=== PATIENT | male | born 1935 | race Caucasian/White ===

== ENCOUNTER 2017-09-20 15:39 | Inpatient (IN) | payer MEDICARE, OTHER ==
[~2017-09-20] VITALS: Ht 180.3 cm; Wt 89.4 kg
[~2017-09-20 15:39] MED LIST: ALLOPURINOL 10100 M1 PO; ALTACE10 MG PO; ASA81BEC PO; BENTYL20 MG PO; CARDURA4 MG PO; COREG6.25 MG PO; COUMADIN 10MG T10 M1 PO; COUMADIN 1MG TAB1 M1 PO; COUMADIN 5 MG TA5 M1 PO; FISH OIL 1,001000 M2 PO; FLONASE 0.05%50 MCG NASAL; KEFLEX500 M1 PO; KEFLEX500 MG PO; LASIX 40 MG TAB40 M2 PO; LIVALO2 MG PO; MIRALAX17 GM PO; PERCOCET PO; PREVACID30 MG PO; SINGULAIR 10 MG10 M1 PO; SINGULAIR 10 MG10 MG PO; TRAMADOL HCL50 MG PO; TYLENOL325 MG PO; VENTOLIN HFA 1818 GM INH
[2017-09-20 15:44] VITALS: BP 132/74
[2017-09-20] MEDS ORDERED: [UNRECOGNIZED DRUG - OTHER] PO (16:37)
[2017-09-20] MEDS ORDERED: SAVAYSA30 MG PO (16:38)
[2017-09-20] MEDS ORDERED: VITAMIN D2000 UNIT PO (16:39)
[2017-09-20] MEDS ORDERED: TYLENOL EXTRA500 MG PO (16:39)
[2017-09-20] MEDS ORDERED: ZANAFLEX2 MG PO (16:40)
[2017-09-20 16:46] LABS: ABSOLUTE EOSINOPHILS 0.2 thou/uL (0.0-0.7); ABSOLUTE LYMPHOCYTES 1.2 thou/uL (0.8-5.3); ABSOLUTE NEUTROPHILS 5.7 thou/uL (1.6-8.1); BASOPHILS 0.4 %; EOSINOPHILS 2.3 %; HEMATOCRIT 38.3 % (42.0-52.0); HEMOGLOBIN 12.5 gm/dL (14.0-18.0); MCH 31.3 pg (26.0-34.0); MCHC 32.5 g/dL (28.0-37.0); MCV 96.1 fL (80.0-100.0); MPV 9.7 fl. (7.2-11.1); NUCLEATED RBCS 0 /100WBC; PLATELET COUNT* 85 thou/uL (150-400); POLYS 70.3 %; RBC 3.99 mil/uL (4.50-6.00); RDW-CV 15.2 % (10.5-14.5); WBC 8.1 thou/uL (4.0-11.0)
[2017-09-20 17:01] LABS: ANION GAP 6 mmol/L (7-16); BUN 34 mg/dL (7-18); CALCIUM 9.4 mg/dL (8.5-10.1); CHLORIDE 111 mmol/L (98-107); CO2 28 mmol/L (21-32); CREATININE 1.2 mg/dL (0.6-1.3); GLUCOSE 99 mg/dL (70-99); POTASSIUM 4.8 mmol/L (3.5-5.1); SODIUM 145 mmol/L (136-145)
[2017-09-20 17:11] LABS: ALBUMIN 3.6 g/dL (3.4-5.0); ALKALINE PHOSPHATASE 46 U/L (46-116); NT-PRO BRAIN NAT PEPTIDE 1178 pg/mL (<300); SGOT 28 U/L (15-37); SGPT 44 U/L (30-65); TOTAL BILIRUBIN 1.7 mg/dL (<0.1-1.0); TOTAL PROTEIN 6.2 g/dL (6.4-8.2); TROPONIN-I LEVEL <0.06 ng/mL (<0.06)
[2017-09-20 17:22] LABS: URINE BILIRUBIN NEGATIVE (Negative); URINE BLOOD NEGATIVE (Negative); URINE CLARITY CLEAR; URINE COLOR YELLOW; URINE GLUCOSE-RANDOM NEGATIVE (Negative); URINE KETONES NEGATIVE (Negative); URINE LEUKOCYTES-REFLEX NEGATIVE (Negative); URINE NITRITE-REFLEX NEGATIVE (Negative); URINE PROTEIN NEGATIVE (Negative); URINE UROBILINOGEN 0.2 E.U./dl (0.2-1.0)
[2017-09-20 17:50] VITALS: BP 139/70
[2017-09-20 18:30] VITALS: BP 126/80
[2017-09-20 20:00] VITALS: BP 119/92
[2017-09-20 22:00] VITALS: BP 109/94
[2017-09-21] VITALS (16 sets, daily range): BP systolic 114–131; BP diastolic 57–94
[2017-09-21 04:31] LABS: ABSOLUTE EOSINOPHILS 0.2 thou/uL (0.0-0.7); ABSOLUTE LYMPHOCYTES 1.2 thou/uL (0.8-5.3); ABSOLUTE MONOCYTES 1.1 thou/uL (0.0-1.2); ABSOLUTE NEUTROPHILS 6.5 thou/uL (1.6-8.1); BASOPHILS 0.3 %; EOSINOPHILS 2.3 %; HEMATOCRIT 38.4 % (42.0-52.0); HEMOGLOBIN 12.6 gm/dL (14.0-18.0); LYMPHOCYTES 13.2 %; MCH 31.1 pg (26.0-34.0); MCHC 32.7 g/dL (28.0-37.0); MCV 94.9 fL (80.0-100.0); MONOCYTES 12.4 %; MPV 9.5 fl. (7.2-11.1); NUCLEATED RBCS 0 /100WBC; PLATELET COUNT* 85 thou/uL (150-400); POLYS 71.8 %; RBC 4.04 mil/uL (4.50-6.00); WBC 9.1 thou/uL (4.0-11.0)
[2017-09-21 04:37] LABS: CALCIUM 9.3 mg/dL (8.5-10.1); CREATININE 1.3 mg/dL (0.6-1.3); POTASSIUM 3.9 mmol/L (3.5-5.1)
--- NOTE | 2017-09-21 16:44 | 2DMMODE ---
[place] [address] 2 D/M-MODE ECHOCARDIOGRAM Name: JIHAN PARKS Room: [address] IN [facility]#: [id number] Admission: 09/20/17 Attend Phys: Jose Luis Toscano, Discharge: Date of : 31 Date of Service: 09/21/17 1643 Report #: [id number] THIS REPORT FOR: //name// APPROVED REPORT Study performed: 09/21/2017 12:32:17 EXAM: Comprehensive 2D, Doppler, and color-flow Echocardiogram Patient Location: In-Patient Room #: [facility] Status: routine BSA: 2.10 HR: 76 bpm BP: 125/74 mmHg Rhythm: NSR Other Information Study Quality: Good Indications Arrhythmia VTACH, NSVT 2D Dimensions LVEF(%): 29.07 (>50%) IVSd: 13.53 (7-11mm) LVOT Diam: 21.17 (18-24mm) LVDd: 57.12 mm PWd: 11.35 (7-11mm) Ascending Ao: 39.26 (22-36mm) LVDs: 49.23 (25-40mm) Aortic Root: 35.88 mm Barajas's LVEF: 29.07 % Volumes Left Atrial Volume (Systole) LA ESV Index: 36.00 mL/m2 Aortic Valve AoV Peak Micheal.: 1.14 m/s AO Peak Gr.: 5.22 mmHg LVOT Max P.40 mmHg AO Mean Gr.: 3.08 mmHg LVOT Mean P.70 mmHg LVOT Max V: 0.59 m/s AO V2 VTI: 18.81 cm LVOT Mean V: 0.38 m/s ZHANG (VTI): 2.02 cm2 LVOT V1 VTI: 10.82 [place] [address] 2 D/M-MODE ECHOCARDIOGRAM Name: CHARLYJIHAN Room: [address] IN [facility]#: [id number] Admission: 09/20/17 Attend Phys: Jose Luis Toscano, Discharge: Date of : 31 Date of Service: 09/21/17 1643 Report #: [id number] MV Decel. Time: 165.66 ms MV PHT: 48.04 ms MVA (PHT): 4.58 cm2 TDI Medial E' Micheal.: 0.11 m/s Lateral E' Micheal.: 0.10 m/s Pulmonary Valve PV Peak Micheal.: 0.77 m/s PV Peak Gr.: 2.37 mmHg Tricuspid Valve TR Peak Gr.: 46.51 mmHg RVSP: 56.00 mmHg Left Ventricle The left ventricle is normal size. There is normal LV segmental wall motion. Mild concentric left ventricular hypertrophy. Left ventricular systolic function is mildly decreased. LVEF is 45%. The left ventricular diastolic function is normal. Right Ventricle Right ventricle is dilated. The right ventricular systolic function is normal. Pacemaker lead is present in the right ventricle. Atria Left atrium is moderately dilated. Right atrium is moderately dilated. Aortic Valve Mild aortic valve sclerosis. Trace aortic regurgitation. There is no aortic valvular stenosis. Mitral Valve The mitral valve is normal in structure. Mild to moderate mitral regurgitation. No evidence of mitral valve stenosis. Tricuspid Valve The tricuspid valve is normal in structure. Mild to moderate tricuspid regurgitation. The RVSP is 55-60 mmHg. Pulmonic Valve The pulmonary valve is normal in structure. Trace pulmonic regurgitation. Great Vessels The aortic root is normal in size[place] [address] 2 D/M-MODE ECHOCARDIOGRAM Name: JIHAN PARKS Room: [address] IN [facility]#: [id number] Admission: 09/20/17 Attend Phys: Jose Luis Toscano, Discharge: Date of : 31 Date of Service: 09/21/17 1643 Report #: [id number] dilated. Pericardium There is no pericardial effusion. <Conclusion> The left ventricle is normal size. Mild concentric left ventricular hypertrophy. Left ventricular systolic function is mildly decreased. LVEF is 45%. Right ventricle is dilated. Left atrium is moderately dilated. Right atrium is moderately dilated. Mild aortic valve sclerosis. Trace aortic regurgitation. There is no aortic valvular stenosis. The mitral valve is normal in structure. Mild to moderate mitral regurgitation. Mild to moderate tricuspid regurgitation. The RVSP is 55-60 mmHg. The IVC is dilated. There is no pericardial effusion. There is normal LV segmental wall motion. Pacemaker lead is present in the right ventricle. <ELECTRONICALLY SIGNED> By: Terrence Walsh MD, FACC 09/21/17 1643 164 164 Terrence Walsh MD, FACC /INF
--- NOTE | 2017-09-21 17:23 | EKG ---
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 Escamilla : 1935 Requested By: Jose Luis Toscano Order Number: [id number] Ranulfo MD: Terrence Walsh Measurements Intervals [place] Rate: 86 P: LA: QRS: 103 QRSD: 190 T: -80 QT: 433 QTc: 518 Interpretive Statements Afib/flut and V-paced complexes; ventricular couplet No further analysis attempted due to paced rhythm Baseline wander in lead(s) V2 No previous ECG available for comparison Electronically Signed On 09-21-2017 17:23:34 TYPIST by Terrence Walsh [email or web address] <ELECTRONICALLY SIGNED> By: Terrence Walsh MD, [facility] 09/21/17 1723 1546 1546 Terrence Walsh MD, [facility] /EPI
[2017-09-22] VITALS (12 sets, daily range): BP systolic 117–148; BP diastolic 62–85
--- NOTE | 2017-09-22 12:45 | CARDNUC ---
[place] [address] CARDIAC NUCLEAR IMAGING REPORT Name: JIHAN PARKS Room: [address] IN [facility]#: [id number] Admission: 09/20/17 Attend Phys: Jose Luis Toscano, Discharge: Date of : 31 Date of Service: 09/22/17 1245 Report #: [id number] THIS REPORT FOR: //name// APPROVED REPORT Exam: Nuclear Stress Test Indication: v tach Patient Location: In-Patient Room #: icu 2 Stress Tech: Yelena Hernandez Stress Nurse: Shannon Hinkle RN Ht: 5 ft 11 in Wt: 197 lbs BSA: 2.10 m2 BMI: 27.4 Medical History Medical History: mi pci with stents hyperlipidemia, hypertension Medications: amiodarone, carvedilol, , Isosorbide, aspirin Allergies: latex Previous Cardiac Procedures: pci with stents Exercise History: Sedentary Meds Held (24 hrs): , Metoprolol, Isosorbide NM EXAM: Myocardial Perfusion REST/STRESS Imaging Protocol: Rest Tc-99m/Stress Tc-99m 1 day Resting Data Rest SPECT myocardial perfusion imaging was performed in supine position 45 minutes following the intravenous injection of 10.7 mCi of Tc-99m Sestamibi. Time of rest injection: 1500 Date: 09/21/2017 The images were gated to evaluate regional wall motion and calculate left ventricular ejection fraction. Administration Route: IV Administration Site: Right AC Pharmacologic Stress Pharmacologic stress test was performed by injecting Regadenoson 0.4 mg IV push followed by the intravenous injection of 33.8 mCi of Tc-99m Sestamibi. Time of stress injection: 1630 Date: 09/21/2017 Administration Route: IV Administration Site: Right AC Gated Stress SPECT was performed 45 [place] [address] CARDIAC NUCLEAR IMAGING REPORT Name: JIHAN PARKS Room: [address] IN ..#: [id number] Admission: 09/20/17 Attend Phys: Jose Luis Toscano, Discharge: Date of : 31 Date of Service: 09/22/17 1245 Report #: [id number] injection. The images were gated to evaluate regional wall motion and calculate left ventricular ejection fraction. Study Quality Study: Fair Artifact: Moderate Diaphragmatic artifact Study Data At rest, the left ventricular ejection fraction was 35%.. Post stress, the left ventricular ejection was 40%.. TID = 1.18. Perfusion Perfusion images obtained at rest and post Lexiscan stress show moderately photopenia in the inferior wall. On gated studies there is normal wall motion in this region. Review of the raw data show significant diaphragmatic attenuation artifact. Additionally there is a focal fixed defect of the apex. There is normal wall motion in this region. His is likely due to apical thinning artifact. No reversible defects are identified. Wall Motion Left particular systolic function appears mild moderately decreased. There is mild global hypokinesis that appears somewhat more pronounced in the lateral wall. Nuclear Conclusion ECG Findings: non-diagnostic Clinical Findings: negative for ischemia Nuclear Findings: negative for ischemia Exercise Capacity: not assessed Left Ventricular Function: abnormal Risk Study: low Myocardial perfusion images show no defect to suggest infarct or ischemia. Fixed defects of the inferior wall and apex appear to be artifactual. Left ventricular systolic function appears mild moderately decreased. This is not a high risk study. Interpreted by: Jhonny Sheth M.D. [facility] Electronically Approved: 09/22/2017 12:45:01 Stress Test Details Stress Test: Pharmacologic stress testing performed using 0.4 mg of regadenoson per 5 mL given IV over 10 seconds. Reason for pharmacologic stress test: [place] [address] CARDIAC NUCLEAR IMAGING REPORT Name: JIHAN PARKS Room: [address]#: [id number] Admission: 09/20/17 Attend Phys: Jose Luis Toscano, Discharge: Date of : 31 Date of Service: 09/22/17 1245 Report #: [id number] limitation. HR Resting HR: 75 bpm Max Heart Rate (APMHR): 136 bpm Max HR Achieved: 85 bpm Target HR (85% APMHR): 115 bpm % of APMHR: 62 Recovery HR: 83 bpm BP Resting BP: 127/92 mmHg Max BP: 138/86 mmHg ECG Resting ECG: Ventricular paced rhythm Stress ECG: Ventricular paced rhythm ST Change: None Arrhythmia: VPC's Recovery ECG: Ventricular paced rhythm Recovery ST Change: None Recovery Arrhythmia: VPC Clinical Reason for Termination: Completed protocol Exercise duration: 0 min sec Exercise capacity: 1 METs The patient tolerated Lexiscan infusion without symptoms. Nurse Comments pt tolerared well. had metoprolol 0900 Stress ECG Conclusion The baseline 12-lead electrocardiogram showed ventricular pacing with frequent and sometimes consecutive PVCs. EKGs obtained during and post Lexiscan infusion showed ventricular pacing with continued be PVCs and occasional consecutive PVCs. <Conclusion> The baseline 12-lead electrocardiogram showed ventricular pacing with frequent and sometimes consecutive PVCs. EKGs obtained during and post Lexiscan infusion showed ventricular pacing with continued be PVCs and occasional consecutive PVCs. <ELECTRONICALLY SIGNED> By: Jhonny Sheth MD, [facility] 09/22/17 1245 1245 1245 Jhonny Sheth MD, FAC /INF
[2017-09-23 02:00] VITALS: BP 128/73
[2017-09-23 04:38] LABS: HEMOGLOBIN 12.4 gm/dL (14.0-18.0); MCH 31.5 pg (26.0-34.0); MCHC 33.4 g/dL (28.0-37.0); MCV 94.5 fL (80.0-100.0); MPV 9.5 fl. (7.2-11.1); RBC 3.92 mil/uL (4.50-6.00); RDW-CV 14.8 % (10.5-14.5); WBC 8.2 thou/uL (4.0-11.0)
[2017-09-23 05:26] LABS: ALBUMIN 3.3 g/dL (3.4-5.0); CALCIUM 9.3 mg/dL (8.5-10.1); CREATININE 1.2 mg/dL (0.6-1.3); POTASSIUM 4.3 mmol/L (3.5-5.1); TOTAL BILIRUBIN 1.7 mg/dL (<0.1-1.0); TOTAL PROTEIN 5.8 g/dL (6.4-8.2)
[2017-09-23 08:00] VITALS: BP 134/81
[2017-09-23 09:18] VITALS: BP 122/66
[2017-09-23] MEDS ORDERED: PACERONE 200 M200 M1 PO (09:36)
== END 2017-09-23 11:30 | disposition home or self-care (01) | DRG 291 ==
LOC: M.ERS 15:39 → M.TBA-ER 17:38 → M.ICU 17:59
PROVIDERS: Family Medicine; Personal Emergency Response Attendant; ADMIT Internal Medicine
DX: I13.0 Hypertensive heart and chronic kidney disease with heart failure and stage 1 through stage 4 chronic kidney disease, or unspecified chronic kidney disease (principal); I50.43 Acute on chronic combined systolic (congestive) and diastolic (congestive) heart failure; N17.9 Acute kidney failure, unspecified; I47.2 Ventricular tachycardia; I25.10 Atherosclerotic heart disease of native coronary artery without angina pectoris; I73.9 Peripheral vascular disease, unspecified; E78.00 Pure hypercholesterolemia, unspecified; Z96.652 Presence of left artificial knee joint; N18.9 Chronic kidney disease, unspecified; I48.2 Chronic atrial fibrillation; J44.9 Chronic obstructive pulmonary disease, unspecified; D69.6 Thrombocytopenia, unspecified; K80.20 Calculus of gallbladder without cholecystitis without obstruction; I42.9 Cardiomyopathy, unspecified; Z95.5 Presence of coronary angioplasty implant and graft; Z95.0 Presence of cardiac pacemaker; Z79.899 Other long term (current) drug therapy; Z91.040 Latex allergy status; Z79.01 Long term (current) use of anticoagulants